=== PATIENT | male | born 1960 | race Asian ===

== ENCOUNTER 2022-05-24 15:23 | Emergency (ER) | payer BC ==
[~2022-05-24] VITALS: Ht 167.6 cm; Wt 72.6 kg
--- NOTE | 2022-05-24 15:25 | NUR ---
Pt brought to ED via EMS for a seizure outside of [facility]. Per seizure only lasted 20 secs, Per EMS Pt was not post ictal on their arrival. Pt has Hx of bladder CA with brain mets, Pt has Hx of seizures. Pt did not take his Keppra this am. Pt has 20 g angio in L AC per EMS. Pt attached to cardiac specialist.
[2022-05-24] MEDS ORDERED: LORazepam 1 MG TABLET PO ONE (15:45)
[2022-05-24] MEDS ORDERED: levETIRAcetam 1,000 MG in NS 90 ML IV ONE (15:45)
[2022-05-24] MEDS ORDERED: NACL 0.9% 1,000 ML IV ONE (15:45)
--- NOTE | 2022-05-24 16:00 | NUR ---
ER Dr. Yadav at bedside examining patient.
[2022-05-24 16:01] VITALS: BP_SYST 142
--- NOTE | 2022-05-24 16:05 | NUR ---
EKG done at bedside
--- NOTE | 2022-05-24 16:10 | NUR ---
blood drawn and sent to lab
--- NOTE | 2022-05-24 16:12 | NUR ---
Meds given per orders
--- NOTE | 2022-05-24 16:15 | NUR ---
Pt depends changed and olya care done. Pt tolerated well
[2022-05-24 16:25] LABS: BASOPHILS % (AUTO) 0.2 % (0.0-2.0); EOSINOPHILS % (AUTO) 0.1 % (0.0-4.0); HEMATOCRIT 41.8 % (36-54); LYMPHOCYTES # (AUTO) 0.6 K/uL (1.0-5.5); LYMPHOCYTES % (AUTO) 9.6 % (20.5-51.5); MEAN CORPUSCULAR HEMOGLOBIN 35 pg (27-31); MEAN CORPUSCULAR HGB CONC 33 % (32-36); MEAN CORPUSCULAR VOLUME 105 fL (79.0-98.0); MONOCYTES # (AUTO) 0.3 K/uL (0.0-1.0); MONOCYTES % (AUTO) 5.2 % (1.7-9.3); NEUTROPHILS # (AUTO) 5.5 K/uL (1.8-7.7); NEUTROPHILS % (AUTO) 84.9 % (40.0-70.0); PLATELET COUNT (AUTO) 252 K/uL (130-430); RED BLOOD CELL COUNT(AUTO) 3.99 MIL/uL (4.2-6.2); RED CELL DISTRIBUTION WIDTH 14.5 % (9.0-15.0); WHITE BLOOD COUNT (AUTO) 6.5 K/uL (4.8-10.8)
[2022-05-24 16:27] LABS: CALCIUM 9.6 mg/dL (8.4-11.0); CREATININE 1.21 mg/dL (0.55-1.30)
[2022-05-24 16:38] LABS: ALBUMIN 3.5 g/dL (3.4-4.8); TOTAL BILIRUBIN 0.8 mg/dL (0.0-1.0)
[2022-05-24] MEDS ORDERED: POTASSIUM CHLORIDE 20 MEQ/PKT PACKET PO ONE (16:45)
[2022-05-24 18:01] VITALS: BP_SYST 145
[2022-05-24] MEDS ORDERED: ONDA-8 TL (19:12)
--- NOTE | 2022-05-24 19:25 | NUR ---
Patient given written and verbal discharge instructions and verbalizes understanding. ER MD discussed with patient the results and treatment provided. Patient in stable condition. ID arm band removed. IV catheter removed intact and dressing applied, no active bleeding. Patient educated on seizure management and to follow up with PMD. Opportunity for questions provided and answered. Medication side effect fact sheet provided.
== END 2022-05-24 19:29 | disposition home or self-care (01) ==
LOC: SED 15:23
DX: R56.9 Unspecified convulsions (principal); C79.31 Secondary malignant neoplasm of brain; R11.10 Vomiting, unspecified; E87.6 Hypokalemia; Z79.899 Other long term (current) drug therapy
CPT/HCPCS: 99291; 96365; 70450; 80053; 85025; 36415; 93005; 76376; J1953